=== PATIENT | male | born 1965 | race Two or more races ===

== ENCOUNTER 2016-06-18 20:36 | Inpatient (IN) | payer BC ==
[~2016-06-18] VITALS: Ht 170.2 cm; Wt 60.1 kg
[2016-06-18 22:23] LABS: BASO # 0.1 x10^3/uL (0.0-0.2); BASO % 1 % (0-3); EOS % 8 % (0-3); HEMATOCRIT 42.3 % (39.0-53.0); HEMOGLOBIN 13.7 g/dL (13.0-17.5); LYMPH # 1.1 x10^3/uL (1.0-4.8); LYMPH % 11 % (24-48); MEAN CORPUSCULAR HEMOGLOBIN 29 pg (25-35); MEAN CORPUSCULAR HGB CONC 32 g/dL (31-37); MEAN CORPUSCULAR VOLUME 91 fL (79-100); MONO % 8 % (0-9); NEUT % 72 % (31-73); PLATELET COUNT 221 x10^3/uL (140-400); RED BLOOD COUNT 4.66 x10^6/uL (4.30-5.70); RED CELL DISTRIBUTION WIDTH 16.9 % (11.5-14.5); WHITE BLOOD COUNT 10.4 x10^3/uL (4.0-11.0)
[2016-06-18 22:35] LABS: CREATININE 7.4 mg/dL (0.7-1.3); GFR 7.8; POTASSIUM 4.8 mmol/L (3.5-5.1)
--- NOTE | 2016-06-18 23:21 | PHYS DOC ---
Past Medical History Past Medical History: Renal Failure Past Surgical History: Other Additional Past Surgical Histo: bilat knee scope Alcohol Use: None Drug Use: None Adult General Chief Complaint Chief Complaint: COUGH HPI HPI 51-year-old male who states he's had significant cough for the last several weeks with some mild shortness of breath but denies any significant chest pain. Patient states his only past medical issues ESRD on hemodialysis 3 times a week. He states he receives hemodialysis Saturday and received a full treatment today on Saturday. His friend was concerned about his persisting cough so he brought him in for evaluation. He denies any significant history of cardiac disease. Review of Systems Review of Systems Constitutional: Denies fever or chills [] Eyes: Denies change in visual acuity, redness, or eye pain [] HENT: Denies nasal congestion or sore throat [] Respiratory: Has cough, denies shortness of breath [] Cardiovascular: No additional information not addressed in HPI [] GI: Denies abdominal pain, nausea, vomiting, bloody stools or diarrhea [] : Denies dysuria or hematuria [] Musculoskeletal: Denies back pain or joint pain [] Integument: Denies rash or skin lesions [] Neurologic: Denies headache, focal weakness or sensory changes [] Endocrine: Denies polyuria or polydipsia [] Allergies Allergies Allergies Coded Allergies Type Severity Reaction Last Updated Verified No Known Drug Allergies 06/18/16 No Physical Exam Physical Exam Constitutional: Well developed, well nourished, no acute distress, non-toxic appearance. [] HENT: Normocephalic, atraumatic, bilateral external ears normal, oropharynx moist, no oral exudates, nose normal. [] Eyes: PERRLA, EOMI, conjunctiva normal, no discharge. [] Neck: Normal range of motion, no tenderness, supple, no stridor. [] Cardiovascular:Heart rate tachycardic with regular rhythm, no murmur [] Lungs & Thorax: Bilateral breath sounds clear to auscultation [] Abdomen: Bowel sounds normal, soft, no tenderness, no masses, no pulsatile masses. [] Skin: Warm, dry, no erythema, no rash. [] Back: No tenderness, no CVA tenderness. [] Extremities: No tenderness, no cyanosis, no clubbing, ROM intact, no edema. [] Neurologic: Alert and oriented X 3, normal motor function, normal sensory function, no focal deficits noted. [] Psychologic: Affect normal, judgement normal, mood normal. [] Current Patient Data Vital Signs Vital Signs Date Time Temp Pulse Resp B/P Pulse Ox O2 Delivery O2 Flow Rate FiO2 06/18/16 23:03 110 11 123/69 92 Room Air 06/18/16 21:23 98.8 98.8 Lab Values Laboratory Tests Test 06/18/16 22:15 White Blood Count 10.4x10^3/uL (4.0-11.0) Red Blood Count 4.66x10^6/uL (4.30-5.70) Hemoglobin 13.7g/dL (13.0-17.5) Hematocrit 42.3% (39.0-53.0) Mean Corpuscular Volume 91fL (79-100) Mean Corpuscular Hemoglobin 29pg (25-35) Mean Corpuscular Hemoglobin Concent 32g/dL (31-37) Red Cell Distribution Width 16.9% (11.5-14.5) H Platelet Count 221x10^3/uL (140-400) Neutrophils (%) (Auto) 72% (31-73) Lymphocytes (%) (Auto) 11% (24-48) L Monocytes (%) (Auto) 8% (0-9) Eosinophils (%) (Auto) 8% (0-3) H Basophils (%) (Auto) 1% (0-3) Neutrophils # (Auto) 7.5x10^3uL (1.8-7.7) Lymphocytes # (Auto) 1.1x10^3/uL (1.0-4.8) Monocytes # (Auto) 0.8x10^3/uL (0.0-1.1) Eosinophils # (Auto) 0.9x10^3/uL (0.0-0.7) H Basophils # (Auto) 0.1x10^3/uL (0.0-0.2) Sodium Level 142mmol/L (136-145) Potassium Level 4.8mmol/L (3.5-5.1) Chloride Level 97mmol/L (98-107) L Carbon Dioxide Level 30mmol/L (21-32) Anion Gap 15 (6-14) H Blood Urea Nitrogen 39mg/dL (8-26) H Creatinine 7.4mg/dL (0.7-1.3) H Estimated GFR (Cockcroft-Gault) 7.8 Glucose Level 105mg/dL (70-99) H Calcium Level 10.0mg/dL (8.5-10.1) Troponin I Quantitative 0.111ng/mL (0.000-0.055) LN-Pwn-E-Type Natriuretic Peptide 9495pg/mL (0-124) H Laboratory Tests 06/18/16 22:15 Laboratory Tests 06/18/16 22:15 EKG EKG EKG as interpreted by me shows a sinus tachycardia with a rate of 103 bpm. There are findings consistent with a nonspecific intraventricular block. There is a right axis. There are no overt signs of ischemia seen. Radiology/Procedures Radiology/Procedures Portable 1 view of the chest as interpreted by me does not reveal an acute cardiopulmonary process. Course & Med Decision Making Course & Med Decision Making Pertinent Labs and Imaging studies reviewed. (See chart for details) 51-year-old male will be admitted to the hospital for his persisting cough. His troponin came back slightly elevated at 0.111 and I will order repeat troponins for the floor. I discussed need to admit the patient with the hospitalist, Dr. Craig, who agreed to accept the admission with cardiology consult as well. Patient was admitted without incident and given a dose of Phenergan cough syrup for his persisting cough. Dragon Disclaimer Dragon Disclaimer This electronic medical record was generated, in whole or in part, using a voice recognition dictation system. Departure Departure Impression: Primary Impression: Chest pain Disposition: ADMITTED INPATIENT Admitting Physician: Jessica Craig Condition: STABLE Referrals: NO PCP (PCP) SHEILA DC DO Jun 18, 2016 23:21
[2016-06-19] VITALS (8 sets, daily range): BP systolic 102–139; BP diastolic 55–73
[2016-06-19] MEDS ORDERED: PROMETH/CODEINE 6.25/10MG 5 ML SYRUP. PO ONE (00:15)
[2016-06-19 06:07] LABS: BASO # 0.1 x10^3/uL (0.0-0.2); BASO % 1 % (0-3); EOS % 12 % (0-3); HEMATOCRIT 38.7 % (39.0-53.0); HEMOGLOBIN 12.4 g/dL (13.0-17.5); LYMPH # 1.2 x10^3/uL (1.0-4.8); LYMPH % 15 % (24-48); MEAN CORPUSCULAR HEMOGLOBIN 29 pg (25-35); MEAN CORPUSCULAR HGB CONC 32 g/dL (31-37); MEAN CORPUSCULAR VOLUME 91 fL (79-100); MONO % 9 % (0-9); NEUT % 63 % (31-73); PLATELET COUNT 196 x10^3/uL (140-400); RED BLOOD COUNT 4.24 x10^6/uL (4.30-5.70); RED CELL DISTRIBUTION WIDTH 16.8 % (11.5-14.5); WHITE BLOOD COUNT 8.2 x10^3/uL (4.0-11.0)
[2016-06-19 06:21] LABS: CREATININE 8.4 mg/dL (0.7-1.3); GFR 6.7; POTASSIUM 4.8 mmol/L (3.5-5.1)
--- NOTE | 2016-06-19 07:26 | EKG ---
[facility] [address] [place] [address] Test Date: 2016-06-18 Test Time: 21:43:30 Pat Name: BING MOREAU Department: Room: 263 1 Gender: M Machine Turner: : 1965 Requested By: SHEILA DC Order Number: [id number] Reading MD: Lan Harvey Measurements Intervals Carr Rate: 103 P: -94 IA: 194 QRS: -103 QRSD: 142 T: 70 QT: 358 QTc: 471 Interpretive Statements SINUS TACHYCARDIA LEFT ATRIAL ABNORMALITY ABNORMAL RIGHT SUPERIOR AXIS DEVIATION LEFT ANTERIOR FASCICULAR BLOCK NON SPECIFIC INTRAVENTRICULAR BLOCK RVH WITH REPOLARIZATION ABNORMALITY QRS(T) CONTOUR ABNORMALITY CONSIDER INFERIOR MYOCARDIAL DAMAGE RI6.01 Unconfirmed report No previous ECG available for comparison Electronically Signed On 06-25-2016 10:46:46 BOX TOE CUTTER by Lan Harvey
--- NOTE | 2016-06-19 08:11 | RAD ---
Exam performed: One view chest. Indication: chest pain Date of Service: 06/18/2016 11:47 PM Comparison: None available. Single AP upright portable view chest findings: Cardiomediastinal silhouette is within limits of normal. No acute infiltrates, effusion or pneumothorax is detected. There is a stent projecting below the left clavicle. The bony structures are normal. Impression: No acute cardiopulmonary process is detected.
--- NOTE | 2016-06-19 10:32 | PDOC2 ---
KYARA SOMMER BUSINESS SYSTEMS ADVISOR 06/19/16 1032: CARDIAC CONSULT DATE OF CONSULT Date of Consult DATE: 06/19/16 TIME: 10:28 REASON FOR CONSULT Reason for Consult: Chest Pain REFERRING PHYSICIAN Referring Physician: Dr. Klein SOURCE Source: Chart review, Patient HISTORY OF PRESENT ILLNESS HISTORY OF PRESENT ILLNESS This is a 51 yo male who presented with complaints of persistent cough. Has been ongoing for the last couple of months. Associated with clear sputum production. Presently denies having CP. Did d/w RN that he had one episode of chest pain 2 weeks ago that was relieved by hitting himself in the chest. Reports to me this was "nothing". Denies any associated dizziness, diaphoresis, n/v, SOA, orthopnea, LE edema, or recent illness/fevers. Is ESRD on HD that he has been complaints with. PAST MEDICAL HISTORY Cardiovascular: HTN Pulmonary: No pertinent hx GI: No pertinent hx Heme/Onc: Anemia NOS Hepatobiliary: No pertinent hx Psych: No pertinent hx Rheumatologic: No pertinent hx Infectious disease: No pertinent hx ENT: No pertinent hx Renal/: Chronic renal failure (on HD) Endocrine: No pertinent hx Dermatology: No pertinent hx PAST SURGICAL HISTORY Past Surgical History: Other (HD shunt placement ) FAMILY HISTORY Family History: Other (non-contributory ) SOCIAL HISTORY Smoke: No ALCOHOL: none Drugs: None Lives: with Family CURRENT MEDICATIONS CURRENT MEDICATIONS Current Medications Medications (Trade) Dose Ordered Sig/Tyler Route PRN Reason Start Time Stop Time Status Last Admin Dose Admin Promethazine HCl/ Codeine (Phenergan With Codeine) 5 ml 1X ONCE PO 06/19/16 00:15 06/19/16 00:16 DC 06/19/16 00:23 ALLERGIES ALLERGIES: Coded Allergies: No Known Drug Allergies (Unverified , 06/18/16) ROS Review of System 14 point ROS conducted with pertinent positives noted above in HPI PHYSICAL EXAM General: Alert, Oriented X3, Cooperative, No acute distress HEENT: Mucous membr. moist/pink Lungs: Clear to auscultation, Normal air movement Heart: Regular rate, Normal S1, Normal S2 Abdomen: Soft, No tenderness Extremities: No edema, Normal pulses Skin: No significant lesion Neuro: Normal speech, Sensation intact Psych/Mental Status: Mental status NL, Mood NL MUSCULOSKELETAL: Full range of motion without pain VITALS VITALS Vital Signs Date Time Temp Pulse Resp B/P Pulse Ox O2 Delivery O2 Flow Rate FiO2 06/19/16 08:00 Room Air 06/19/16 07:52 97.9 99 19 131/73 93 97.9 LABS Lab: Laboratory Tests Test 06/18/16 22:15 06/19/16 05:25 White Blood Count 10.4x10^3/uL (4.0-11.0) 8.2x10^3/uL (4.0-11.0) Red Blood Count 4.66x10^6/uL (4.30-5.70) 4.24x10^6/uL (4.30-5.70) Hemoglobin 13.7g/dL (13.0-17.5) 12.4g/dL (13.0-17.5) Hematocrit 42.3% (39.0-53.0) 38.7% (39.0-53.0) Mean Corpuscular Volume 91fL (79-100) 91fL (79-100) Mean Corpuscular Hemoglobin 29pg (25-35) 29pg (25-35) Mean Corpuscular Hemoglobin Concent 32g/dL (31-37) 32g/dL (31-37) Red Cell Distribution Width 16.9% (11.5-14.5) 16.8% (11.5-14.5) Platelet Count 221x10^3/uL (140-400) 196x10^3/uL (140-400) Neutrophils (%) (Auto) 72% (31-73) 63% (31-73) Lymphocytes (%) (Auto) 11% (24-48) 15% (24-48) Monocytes (%) (Auto) 8% (0-9) 9% (0-9) Eosinophils (%) (Auto) 8% (0-3) 12% (0-3) Basophils (%) (Auto) 1% (0-3) 1% (0-3) Neutrophils # (Auto) 7.5x10^3uL (1.8-7.7) 5.2x10^3uL (1.8-7.7) Lymphocytes # (Auto) 1.1x10^3/uL (1.0-4.8) 1.2x10^3/uL (1.0-4.8) Monocytes # (Auto) 0.8x10^3/uL (0.0-1.1) 0.8x10^3/uL (0.0-1.1) Eosinophils # (Auto) 0.9x10^3/uL (0.0-0.7) 1.0x10^3/uL (0.0-0.7) Basophils # (Auto) 0.1x10^3/uL (0.0-0.2) 0.1x10^3/uL (0.0-0.2) Sodium Level 142mmol/L (136-145) 145mmol/L (136-145) Potassium Level 4.8mmol/L (3.5-5.1) 4.8mmol/L (3.5-5.1) Chloride Level 97mmol/L (98-107) 99mmol/L (98-107) Carbon Dioxide Level 30mmol/L (21-32) 29mmol/L (21-32) Anion Gap 15 (6-14) 17 (6-14) Blood Urea Nitrogen 39mg/dL (8-26) 42mg/dL (8-26) Creatinine 7.4mg/dL (0.7-1.3) 8.4mg/dL (0.7-1.3) Estimated GFR (Cockcroft-Gault) 7.8 6.7 Glucose Level 105mg/dL (70-99) 91mg/dL (70-99) Calcium Level 10.0mg/dL (8.5-10.1) 10.0mg/dL (8.5-10.1) Troponin I Quantitative 0.111ng/mL (0.000-0.055) 0.109ng/mL (0.000-0.055) NT-Bex-U-Type Natriuretic Peptide 9495pg/mL (0-124) ASSESSMENT/PLAN ASSESSMENT/PLAN 1. Chest Pain, atypical 2. Mild NT Pro BNP 3. ESRD on HD 4. URI Recommendations mild troponin elevation likely demand ischemia in the setting of chronic renal failure. doubt ACS. ASA. Check lipids. No s/s of overt HF. Will check echo to assess LV function/ rule out WMA If echo WNL, may discharge from cardiac standpoint. Problems: FRANNY DICK MD 06/19/16 2207: CARDIAC CONSULT ALLERGIES ALLERGIES: Coded Allergies: No Known Drug Allergies (Unverified , 06/18/16) ASSESSMENT/PLAN ASSESSMENT/PLAN Case discussed with TRAFFIC REPRESENTATIVE. 51 y.o male presenting with atypical chest pain Mild troponin elevation noted. Echo reviewed. Possible moderate to severe aortic stenosis. Will discuss with patient regarding further evaluation including BRENTON/heart cath as indicated. Further recs in a.m. Problems: KYARA SOMMER APRN Jun 19, 2016 10:32 FRANNY DICK MD Jun 19, 2016 22:07
--- NOTE | 2016-06-19 10:57 | PDOC2 ---
CONSULT Date of Consult Date of Consult DATE: 06/19/16 TIME: 10:54 Reason for Consult Reason for Consult: ESRD Referring Physician Referring Physician: LUIS Identification/Chief Complaint Chief Complaint CHEST PAIN Source Source: Chart review, Patient History of Present Illness Reason for Visit: THIS IS A 51 YR OLD ADMITTED WITH CHEST PAIN. HE HAS ESRD AND IS ON HD IN [place] ON MWF. LAST HAD HIS HD YESTERDAY. LABS ARE C/W ESRD. HE ALSO HAS A PERSISTENT COUGH Past Medical History Cardiovascular: HTN GI: Constipation Heme/Onc: Anemia NOS Renal/: Chronic renal failure (on HD) Endocrine: Hyperparathyroidism Past Surgical History Past Surgical History LEFT FA RC FISTULA Current Problem List Problem List Problems Medical Problems: (1) Chest pain Status: Acute Current Medications Current Medications Current Medications Promethazine HCl/ Codeine (Phenergan With Codeine) 5 ml 1X ONCE PO Last administered on 06/19/16t 00:23; Start 06/19/16 at 00:15; Stop 06/19/16 at 00:16 ; Status DC Active Scripts Active Reported No Known Medications Prior To Admisstion (Info) Each 1 Each Allergies Allergies: Coded Allergies: No Known Drug Allergies (Unverified , 06/18/16) ROS General: YES: Fatigue, Malaise PSYCHOLOGICAL ROS: YES: Anxiety Eyes: Yes Decreased vision HEENT: YES: Heacaches Respiratory: YES: Cough Cardiovascular: yes Chest Pain Gastrointestinal: Yes Constipation Musculoskeletal: Yes Muscular Weakness Neurological: Yes Weakness Physical Exam Physical Exam PATENT LEFT FA RC FISTULA WITH A GOOD THRILL AND BRUIT. WELL DEVELOPED General: Alert, Oriented X3, Cooperative, No acute distress HEENT: Atraumatic, PERRLA Lungs: Clear to auscultation Heart: Regular rate, Normal S1, Normal S2, No murmurs Abdomen: Normal bowel sounds, Soft, No tenderness Extremities: No clubbing, No edema Skin: No breakdown Neuro: Normal speech, Cranial nerves 3-12 NL Psych/Mental Status: Mental status NL, Mood NL MUSCULOSKELETAL: No deformity, No swelling Vitals VITALS Vital Signs Date Time Temp Pulse Resp B/P Pulse Ox O2 Delivery O2 Flow Rate FiO2 06/19/16 08:00 Room Air 06/19/16 07:52 97.9 99 19 131/73 93 97.9 Labs Labs Laboratory Tests Test 06/18/16 22:15 06/19/16 05:25 White Blood Count 10.4x10^3/uL (4.0-11.0) 8.2x10^3/uL (4.0-11.0) Red Blood Count 4.66x10^6/uL (4.30-5.70) 4.24x10^6/uL (4.30-5.70) Hemoglobin 13.7g/dL (13.0-17.5) 12.4g/dL (13.0-17.5) Hematocrit 42.3% (39.0-53.0) 38.7% (39.0-53.0) Mean Corpuscular Volume 91fL (79-100) 91fL (79-100) Mean Corpuscular Hemoglobin 29pg (25-35) 29pg (25-35) Mean Corpuscular Hemoglobin Concent 32g/dL (31-37) 32g/dL (31-37) Red Cell Distribution Width 16.9% (11.5-14.5) 16.8% (11.5-14.5) Platelet Count 221x10^3/uL (140-400) 196x10^3/uL (140-400) Neutrophils (%) (Auto) 72% (31-73) 63% (31-73) Lymphocytes (%) (Auto) 11% (24-48) 15% (24-48) Monocytes (%) (Auto) 8% (0-9) 9% (0-9) Eosinophils (%) (Auto) 8% (0-3) 12% (0-3) Basophils (%) (Auto) 1% (0-3) 1% (0-3) Neutrophils # (Auto) 7.5x10^3uL (1.8-7.7) 5.2x10^3uL (1.8-7.7) Lymphocytes # (Auto) 1.1x10^3/uL (1.0-4.8) 1.2x10^3/uL (1.0-4.8) Monocytes # (Auto) 0.8x10^3/uL (0.0-1.1) 0.8x10^3/uL (0.0-1.1) Eosinophils # (Auto) 0.9x10^3/uL (0.0-0.7) 1.0x10^3/uL (0.0-0.7) Basophils # (Auto) 0.1x10^3/uL (0.0-0.2) 0.1x10^3/uL (0.0-0.2) Sodium Level 142mmol/L (136-145) 145mmol/L (136-145) Potassium Level 4.8mmol/L (3.5-5.1) 4.8mmol/L (3.5-5.1) Chloride Level 97mmol/L (98-107) 99mmol/L (98-107) Carbon Dioxide Level 30mmol/L (21-32) 29mmol/L (21-32) Anion Gap 15 (6-14) 17 (6-14) Blood Urea Nitrogen 39mg/dL (8-26) 42mg/dL (8-26) Creatinine 7.4mg/dL (0.7-1.3) 8.4mg/dL (0.7-1.3) Estimated GFR (Cockcroft-Gault) 7.8 6.7 Glucose Level 105mg/dL (70-99) 91mg/dL (70-99) Calcium Level 10.0mg/dL (8.5-10.1) 10.0mg/dL (8.5-10.1) Troponin I Quantitative 0.111ng/mL (0.000-0.055) 0.109ng/mL (0.000-0.055) IQ-Yam-Y-Type Natriuretic Peptide 9495pg/mL (0-124) Laboratory Tests Test 06/18/16 22:15 06/19/16 05:25 White Blood Count 10.4x10^3/uL (4.0-11.0) 8.2x10^3/uL (4.0-11.0) Red Blood Count 4.66x10^6/uL (4.30-5.70) 4.24x10^6/uL (4.30-5.70) Hemoglobin 13.7g/dL (13.0-17.5) 12.4g/dL (13.0-17.5) Hematocrit 42.3% (39.0-53.0) 38.7% (39.0-53.0) Mean Corpuscular Volume 91fL (79-100) 91fL (79-100) Mean Corpuscular Hemoglobin 29pg (25-35) 29pg (25-35) Mean Corpuscular Hemoglobin Concent 32g/dL (31-37) 32g/dL (31-37) Red Cell Distribution Width 16.9% (11.5-14.5) 16.8% (11.5-14.5) Platelet Count 221x10^3/uL (140-400) 196x10^3/uL (140-400) Neutrophils (%) (Auto) 72% (31-73) 63% (31-73) Lymphocytes (%) (Auto) 11% (24-48) 15% (24-48) Monocytes (%) (Auto) 8% (0-9) 9% (0-9) Eosinophils (%) (Auto) 8% (0-3) 12% (0-3) Basophils (%) (Auto) 1% (0-3) 1% (0-3) Neutrophils # (Auto) 7.5x10^3uL (1.8-7.7) 5.2x10^3uL (1.8-7.7) Lymphocytes # (Auto) 1.1x10^3/uL (1.0-4.8) 1.2x10^3/uL (1.0-4.8) Monocytes # (Auto) 0.8x10^3/uL (0.0-1.1) 0.8x10^3/uL (0.0-1.1) Eosinophils # (Auto) 0.9x10^3/uL (0.0-0.7) 1.0x10^3/uL (0.0-0.7) Basophils # (Auto) 0.1x10^3/uL (0.0-0.2) 0.1x10^3/uL (0.0-0.2) Sodium Level 142mmol/L (136-145) 145mmol/L (136-145) Potassium Level 4.8mmol/L (3.5-5.1) 4.8mmol/L (3.5-5.1) Chloride Level 97mmol/L (98-107) 99mmol/L (98-107) Carbon Dioxide Level 30mmol/L (21-32) 29mmol/L (21-32) Anion Gap 15 (6-14) 17 (6-14) Blood Urea Nitrogen 39mg/dL (8-26) 42mg/dL (8-26) Creatinine 7.4mg/dL (0.7-1.3) 8.4mg/dL (0.7-1.3) Estimated GFR (Cockcroft-Gault) 7.8 6.7 Glucose Level 105mg/dL (70-99) 91mg/dL (70-99) Calcium Level 10.0mg/dL (8.5-10.1) 10.0mg/dL (8.5-10.1) Troponin I Quantitative 0.111ng/mL (0.000-0.055) 0.109ng/mL (0.000-0.055) SF-Mer-E-Type Natriuretic Peptide 9495pg/mL (0-124) Assessment/Plan Assessment/Plan IMP CHEST PAIN COUGH ANEMIA HTN ESRD PLAN CARDIOLOGY EVAL AND TX HD TOMORROW WILL FOLLOW KAILYN CHRISTIANSEN MD Jun 19, 2016 10:57
[2016-06-19 12:41] LABS: CHOLESTEROL/HDL RATIO 3.9
--- NOTE | 2016-06-19 15:27 | PDOC1 ---
History and Physical Date of Admission Date of Admission 06/19/16 Identification/Chief Complaint Chief Complaint cough Problems: Source Source: Chart review, Patient History of Present Illness History of Present Illness HPI HPI 51-year-old male ESRD on HD wmf, NO PCP, comes for cough for 2 months He said he didnot take any meds for it. Romanian speaking. he does have some clear sputum. denies chest pain. didnot miss HD. Past Medical History Cardiovascular: HTN Pulmonary: No pertinent hx GI: No pertinent hx Heme/Onc: Anemia NOS Hepatobiliary: No pertinent hx Psych: No pertinent hx Rheumatologic: No pertinent hx Infectious disease: No pertinent hx ENT: No pertinent hx Renal/: Chronic renal failure (on HD) Endocrine: No pertinent hx Dermatology: No pertinent hx Past Surgical History Past Surgical History: Other (HD shunt placement ) Family History Family History: Other (non-contributory ) Social History Smoke: No ALCOHOL: none Drugs: None Current Problem List Problem List Problems Medical Problems: (1) Chest pain Status: Acute Current Medications Current Medications Current Medications Medications (Trade) Dose Ordered Sig/Tyler Start Time Stop Time Status Last Admin Dose Admin Promethazine HCl/ Codeine (Phenergan With Codeine) 5 ml 1X ONCE 06/19/16 00:15 06/19/16 00:16 DC 06/19/16 00:23 5 ML Allergies Allergies Allergies Coded Allergies Type Severity Reaction Last Updated Verified No Known Drug Allergies 06/18/16 No ROS Review of System CONSTITUTIONAL: No fever or chills EYES: No recent changes SKIN: No rash or itching CARDIOVASCULAR: No chest pain, syncope, palpitations, or edema RESPIRATORY: No SOB or cough GASTROINTESTINAL: No nausea, vomiting or abdominal pain NEUROLOGICAL: No headaches or weakness ENDOCRINE: No cold or heat intolerance GENITOURINARY: No urgency or frequency of urination MUSCULOSKELETAL: No back pain or joint pain LYMPHATICS: No enlarged lymph nodes PSYCHIATRIC: No anxiety or depression Physical Exam Physical Exam GEN.: No apparent distress. Alert and oriented. HEENT: Head is normocephalic, atraumatic NECK: Supple. LUNGS: Clear to auscultation. HEART: RRR, S1, S2 present. Peripheral pulses intact ABDOMEN: Soft, nontender. Positive bowel sounds. EXTREMITIES: Without any cyanosis. NEUROLOGIC: Normal speech, normal tone PSYCHIATRIC: Normal affect, normal mood. SKIN: No ulcerations Vitals Vitals Vital Signs Date Time Temp Pulse Resp B/P Pulse Ox O2 Delivery O2 Flow Rate FiO2 06/19/16 14:26 98.0 97 19 106/55 93 Room Air 98.0 Labs Labs Laboratory Tests Test 06/18/16 22:15 06/19/16 05:25 06/19/16 11:05 White Blood Count 10.4x10^3/uL (4.0-11.0) 8.2x10^3/uL (4.0-11.0) Red Blood Count 4.66x10^6/uL (4.30-5.70) 4.24x10^6/uL (4.30-5.70) Hemoglobin 13.7g/dL (13.0-17.5) 12.4g/dL (13.0-17.5) Hematocrit 42.3% (39.0-53.0) 38.7% (39.0-53.0) Mean Corpuscular Volume 91fL (79-100) 91fL (79-100) Mean Corpuscular Hemoglobin 29pg (25-35) 29pg (25-35) Mean Corpuscular Hemoglobin Concent 32g/dL (31-37) 32g/dL (31-37) Red Cell Distribution Width 16.9% (11.5-14.5) 16.8% (11.5-14.5) Platelet Count 221x10^3/uL (140-400) 196x10^3/uL (140-400) Neutrophils (%) (Auto) 72% (31-73) 63% (31-73) Lymphocytes (%) (Auto) 11% (24-48) 15% (24-48) Monocytes (%) (Auto) 8% (0-9) 9% (0-9) Eosinophils (%) (Auto) 8% (0-3) 12% (0-3) Basophils (%) (Auto) 1% (0-3) 1% (0-3) Neutrophils # (Auto) 7.5x10^3uL (1.8-7.7) 5.2x10^3uL (1.8-7.7) Lymphocytes # (Auto) 1.1x10^3/uL (1.0-4.8) 1.2x10^3/uL (1.0-4.8) Monocytes # (Auto) 0.8x10^3/uL (0.0-1.1) 0.8x10^3/uL (0.0-1.1) Eosinophils # (Auto) 0.9x10^3/uL (0.0-0.7) 1.0x10^3/uL (0.0-0.7) Basophils # (Auto) 0.1x10^3/uL (0.0-0.2) 0.1x10^3/uL (0.0-0.2) Sodium Level 142mmol/L (136-145) 145mmol/L (136-145) Potassium Level 4.8mmol/L (3.5-5.1) 4.8mmol/L (3.5-5.1) Chloride Level 97mmol/L (98-107) 99mmol/L (98-107) Carbon Dioxide Level 30mmol/L (21-32) 29mmol/L (21-32) Anion Gap 15 (6-14) 17 (6-14) Blood Urea Nitrogen 39mg/dL (8-26) 42mg/dL (8-26) Creatinine 7.4mg/dL (0.7-1.3) 8.4mg/dL (0.7-1.3) Estimated GFR (Cockcroft-Gault) 7.8 6.7 Glucose Level 105mg/dL (70-99) 91mg/dL (70-99) Calcium Level 10.0mg/dL (8.5-10.1) 10.0mg/dL (8.5-10.1) Troponin I Quantitative 0.111ng/mL (0.000-0.055) 0.109ng/mL (0.000-0.055) 0.094ng/mL (0.000-0.055) LE-Ssk-Y-Type Natriuretic Peptide 9495pg/mL (0-124) Triglycerides Level 112mg/dL (0-150) Cholesterol Level 172mg/dL (0-200) LDL Cholesterol, Calculated 106mg/dL (0-100) VLDL Cholesterol, Calculated 22mg/dL (0-40) HDL Cholesterol 44mg/dL (40-60) Cholesterol/HDL Ratio 3.9 Laboratory Tests Test 06/18/16 22:15 06/19/16 05:25 06/19/16 11:05 White Blood Count 10.4x10^3/uL (4.0-11.0) 8.2x10^3/uL (4.0-11.0) Red Blood Count 4.66x10^6/uL (4.30-5.70) 4.24x10^6/uL (4.30-5.70) Hemoglobin 13.7g/dL (13.0-17.5) 12.4g/dL (13.0-17.5) Hematocrit 42.3% (39.0-53.0) 38.7% (39.0-53.0) Mean Corpuscular Volume 91fL (79-100) 91fL (79-100) Mean Corpuscular Hemoglobin 29pg (25-35) 29pg (25-35) Mean Corpuscular Hemoglobin Concent 32g/dL (31-37) 32g/dL (31-37) Red Cell Distribution Width 16.9% (11.5-14.5) 16.8% (11.5-14.5) Platelet Count 221x10^3/uL (140-400) 196x10^3/uL (140-400) Neutrophils (%) (Auto) 72% (31-73) 63% (31-73) Lymphocytes (%) (Auto) 11% (24-48) 15% (24-48) Monocytes (%) (Auto) 8% (0-9) 9% (0-9) Eosinophils (%) (Auto) 8% (0-3) 12% (0-3) Basophils (%) (Auto) 1% (0-3) 1% (0-3) Neutrophils # (Auto) 7.5x10^3uL (1.8-7.7) 5.2x10^3uL (1.8-7.7) Lymphocytes # (Auto) 1.1x10^3/uL (1.0-4.8) 1.2x10^3/uL (1.0-4.8) Monocytes # (Auto) 0.8x10^3/uL (0.0-1.1) 0.8x10^3/uL (0.0-1.1) Eosinophils # (Auto) 0.9x10^3/uL (0.0-0.7) 1.0x10^3/uL (0.0-0.7) Basophils # (Auto) 0.1x10^3/uL (0.0-0.2) 0.1x10^3/uL (0.0-0.2) Sodium Level 142mmol/L (136-145) 145mmol/L (136-145) Potassium Level 4.8mmol/L (3.5-5.1) 4.8mmol/L (3.5-5.1) Chloride Level 97mmol/L (98-107) 99mmol/L (98-107) Carbon Dioxide Level 30mmol/L (21-32) 29mmol/L (21-32) Anion Gap 15 (6-14) 17 (6-14) Blood Urea Nitrogen 39mg/dL (8-26) 42mg/dL (8-26) Creatinine 7.4mg/dL (0.7-1.3) 8.4mg/dL (0.7-1.3) Estimated GFR (Cockcroft-Gault) 7.8 6.7 Glucose Level 105mg/dL (70-99) 91mg/dL (70-99) Calcium Level 10.0mg/dL (8.5-10.1) 10.0mg/dL (8.5-10.1) Troponin I Quantitative 0.111ng/mL (0.000-0.055) 0.109ng/mL (0.000-0.055) 0.094ng/mL (0.000-0.055) EC-Xhz-R-Type Natriuretic Peptide 9495pg/mL (0-124) Triglycerides Level 112mg/dL (0-150) Cholesterol Level 172mg/dL (0-200) LDL Cholesterol, Calculated 106mg/dL (0-100) VLDL Cholesterol, Calculated 22mg/dL (0-40) HDL Cholesterol 44mg/dL (40-60) Cholesterol/HDL Ratio 3.9 VTE Prophylaxis Ordered VTE Prophylaxis Devices: Yes VTE Pharmacological Prophylaxi: Yes Assessment/Plan Assessment/Plan 1. bronchitis, likely viral infection 2. ESRD ON HD MWF 3. high troponin 2/2 2 likely plan: fu with renal , Card echo add azithromycin given coughing for 2 months, add mucinex duoneb hope to dc tmr BEKAH SALAZAR MD Jun 19, 2016 15:27
[2016-06-19] MEDS ORDERED: ACETAMINOPHEN 325 MG TABLET. PO PRN (15:30)
[2016-06-19] MEDS ORDERED: ONDANSETRON PF 4 MG/2 ML VIAL. IV PRN (15:30)
[2016-06-19] MEDS ORDERED: AZITHROMYCIN 250 MG TABLET PO ONE (15:45)
[2016-06-19] MEDS: GUAIFENESIN ER 600 MG TABLET.ER PO SCH (16:06)
--- NOTE | 2016-06-19 16:17 | CARD ---
APPROVED REPORT EXAM: Two-dimensional and M-mode echocardiogram with Doppler and color Doppler. Other Information Quality : Average Rhythm : NSR INDICATION elevated troponin level 2D DIMENSIONS Left Atrium(2D)3.8 (1.6-4.0cm)IVSd1.9 (0.7-1.1cm) Aortic Root(2D)3.3 (2.0-3.7cm)LVDd5.1 (3.9-5.9cm) LVOT Diameter1.9 (1.8-2.4cm)PWd1.8 (0.7-1.1cm) LVDs3.6 (2.5-4.0cm)SV72.1 ml LVEF(%)54.3 (>50%) Aortic Valve AoV Peak Hakeem.325.9cm/sAoV VTI60.4cm AO Peak GR.42.5mmHgLVOT Peak Hakeem.111.8cm/s AO Mean GR.28mmHgAVA (VMAX)0.96cm2 ERIC (VTI)0.73to5GY P 1/2 Kcng534qr Mitral Valve MV E Wppubwnb41.9cm/sMV DECEL APLD199mk MV A Xdbntffz840.2cm/sMV UIE26et E/A Ratio0.5MV A Jaybggux998yb MVA (PHT)4.67cm2 Tricuspid Valve TR P. Wonutbrh660my/sRAP LQCTPEDM6znEg TR Peak Gr.70bdWvPYPG94ulRn LEFT VENTRICLE The left ventricle is normal size. There is moderate concentric left ventricular hypertrophy. Left ve ntricle systolic function is normal. The Ejection Fraction is 50-55%. There is normal LV segmental wa ll motion. Tissue Doppler imaging reveals mild left ventricular diastolic dysfunction. Transmitral Do ppler flow pattern is Grade I-abnormal relaxation pattern. RIGHT VENTRICLE The right ventricle is normal size. The right ventricular systolic function is normal. ATRIA The left atrium size is normal. The right atrium size is normal. The interatrial septum is intact wit h no evidence for an atrial septal defect or patent foramen ovale as noted on 2-D or Doppler imaging. AORTIC VALVE The aortic valve is moderately to severely calcified. Doppler and Color Flow revealed mild aortic reg urgitation. Calculated aortic valve area maximum pressure gradient of 43 mmHg and mean pressure gradi ent of 28 mmHg. Doppler and color-flow analysis revealed moderate to moderately severe aortic stenosi s. MITRAL VALVE Mitral annular calcification is moderate on the anterior leaflet. There is no mitral valve stenosis. Doppler and Color Flow revealed mild mitral regurgitation. TRICUSPID VALVE The tricuspid valve is normal in structure and function. Doppler and Color Flow revealed trace to mil d tricuspid regurgitation. The PA pressure was estimated at 18 mmHg. There is no tricuspid valve sten osis. PULMONIC VALVE The pulmonic valve is not well visualized. Doppler and Color Flow revealed no pulmonic valvular regur gitation. There is no pulmonic valvular stenosis. GREAT VESSELS The aortic root is normal in size. The IVC is normal in size and collapses >50% with inspiration. PERICARDIAL EFFUSION There is no evidence of significant pericardial effusion. Critical Notification Date: 06/19/2016 Time: 15:51 Other Discipline : Mary Ellen Greene APRN Critical Value: Yes <Conclusion> The left ventricle is normal size. Left ventricle systolic function is normal. The Ejection Fraction is 50-55%. There is moderate concentric left ventricular hypertrophy. The aortic valve is moderately to severely calcified. Calculated aortic valve area maximum pressure gradient of 43 mmHg and mean pressure gradient of 28 m mHg. Doppler and color-flow analysis revealed moderate to moderately severe aortic stenosis. Doppler and Color Flow revealed mild aortic regurgitation. Doppler and Color Flow revealed mild mitral regurgitation. Doppler and Color Flow revealed trace to mild tricuspid regurgitation. The PA pressure was estimated at 18 mmHg.
[2016-06-19] MEDS: IPRATRPIUM/ALBUTEROL 0.5/2.5MG 3 ML NEBU. NEB SCH (18:59)
[2016-06-19] MEDS: GUAIFENESIN DM 200MG/20MG 10 ML SYRUP. PO PRN (21:48)
[2016-06-20 02:55] VITALS: BP 127/70
[2016-06-20 04:30] LABS: CALCIUM 9.6 mg/dL (8.5-10.1); CREATININE 11.1 mg/dL (0.7-1.3); GFR 4.9; POTASSIUM 5.1 mmol/L (3.5-5.1)
[2016-06-20 04:38] LABS: BASO # 0.1 x10^3/uL (0.0-0.2); BASO % 1 % (0-3); EOS % 6 % (0-3); HEMATOCRIT 35.7 % (39.0-53.0); HEMOGLOBIN 11.6 g/dL (13.0-17.5); LYMPH % 9 % (24-48); MEAN CORPUSCULAR HEMOGLOBIN 30 pg (25-35); MEAN CORPUSCULAR HGB CONC 33 g/dL (31-37); MEAN CORPUSCULAR VOLUME 91 fL (79-100); MONO % 9 % (0-9); NEUT % 75 % (31-73); PLATELET COUNT 198 x10^3/uL (140-400); RED CELL DISTRIBUTION WIDTH 16.7 % (11.5-14.5); WHITE BLOOD COUNT 12.1 x10^3/uL (4.0-11.0)
[2016-06-20 07:00] VITALS: BP 136/75
[2016-06-20] MEDS: IPRATRPIUM/ALBUTEROL 0.5/2.5MG 3 ML NEBU. NEB SCH ×4 (07:57→20:02)
[2016-06-20] MEDS: GUAIFENESIN DM 200MG/20MG 10 ML SYRUP. PO PRN (08:15)
[2016-06-20] MEDS ORDERED: IV NORMAL SALINE 1000ML BAG 1,000 ML IV PRN ×2 (08:38)
[2016-06-20] MEDS ORDERED: DIALYSIS PATIENT. MC PRN (08:45)
[2016-06-20] MEDS ORDERED: DIPHENHYDRAMINE 50 MG/ML VIAL IV PRN ×2 (08:45)
--- NOTE | 2016-06-20 09:35 | PDOC ---
CARDIO Progress Notes Date and Time Date of Service 06/20/16 Time of Evaluation 0915 Subjective Subjective: No Chest Pain, No shortness of breath, No Palpitations, No Dizziness, Other (cough persists ) Comments: trimmer climber line utilized for encounter Vitals Vitals Vital Signs Date Time Temp Pulse Resp B/P Pulse Ox O2 Delivery O2 Flow Rate FiO2 06/20/16 08:19 Room Air 06/20/16 07:58 93 06/20/16 07:00 98.1 92 17 136/75 98.1 Weight Weight [ ] Input and Output Intake and Output Intake and Output 06/20/16 07:00 Intake Total 1640 ml Output Total 600 ml Balance 1040 ml Intake Oral 1640 ml Output Urine Total 600 ml Laboratory Labs Laboratory Tests Test 06/19/16 11:05 06/20/16 03:48 Troponin I Quantitative 0.094ng/mL (0.000-0.055) White Blood Count 12.1x10^3/uL (4.0-11.0) Red Blood Count 3.90x10^6/uL (4.30-5.70) Hemoglobin 11.6g/dL (13.0-17.5) Hematocrit 35.7% (39.0-53.0) Mean Corpuscular Volume 91fL (79-100) Mean Corpuscular Hemoglobin 30pg (25-35) Mean Corpuscular Hemoglobin Concent 33g/dL (31-37) Red Cell Distribution Width 16.7% (11.5-14.5) Platelet Count 198x10^3/uL (140-400) Neutrophils (%) (Auto) 75% (31-73) Lymphocytes (%) (Auto) 9% (24-48) Monocytes (%) (Auto) 9% (0-9) Eosinophils (%) (Auto) 6% (0-3) Basophils (%) (Auto) 1% (0-3) Neutrophils # (Auto) 9.1x10^3uL (1.8-7.7) Lymphocytes # (Auto) 1.0x10^3/uL (1.0-4.8) Monocytes # (Auto) 1.1x10^3/uL (0.0-1.1) Eosinophils # (Auto) 0.8x10^3/uL (0.0-0.7) Basophils # (Auto) 0.1x10^3/uL (0.0-0.2) Sodium Level 141mmol/L (136-145) Potassium Level 5.1mmol/L (3.5-5.1) Chloride Level 98mmol/L (98-107) Carbon Dioxide Level 27mmol/L (21-32) Anion Gap 16 (6-14) Blood Urea Nitrogen 77mg/dL (8-26) Creatinine 11.1mg/dL (0.7-1.3) Estimated GFR (Cockcroft-Gault) 4.9 Glucose Level 110mg/dL (70-99) Calcium Level 9.6mg/dL (8.5-10.1) Physical Exam HEENT: Neck Supple W Full Motion Chest: Symmetric Heart: S1S2, RRR, other (2/6 systolic murmur ) Abdomen: Soft N/T Extremities: No Edema, Other (LUE fistula + bruit and thrill) Neurology: alert, oriented, follow commands Assessment Assessment 1. Chest Pain, atypical 2. Mild NT Pro BNP 3. Moderate-severe aortic stenosis 4. ESRD on HD 5. cough Recommendations Had significant, thorough discussion with patient regarding echo finding of moderate-severe aortic stenosis along with probable complications and potential role it may have in his ongoing cough. Further cardiac evaluation, in the form of BRENTON/cardiac cath discussed with patient for which he declined to proceed with multiple times. Acknowledges he will eventually have further implications from untreated heart/valvular disease. Reports that he will consider further cardiac workup at a later date but he has things he needs to attend to at home; repeatedly asking when he can go home during discussion. Patient provided with office card and contact information. Encouraged to follow up within 2-4 weeks. Patient verbalized understanding. KYARA SOMMER APRN Jun 20, 2016 09:34
--- NOTE | 2016-06-20 10:44 | PDOC ---
Renal-Progress Notes Subjective Notes Notes FEELS WELL, WANTS TO GO HOME History of Present Illness Hx of present illness NO CHANGE Vitals Vitals Vital Signs Date Time Temp Pulse Resp B/P Pulse Ox O2 Delivery O2 Flow Rate FiO2 06/20/16 08:19 Room Air 06/20/16 07:58 93 06/20/16 07:00 98.1 92 17 136/75 98.1 Weight Weight [ ] I.O. Intake and Output Intake and Output 06/20/16 07:00 Intake Total 1640 ml Output Total 600 ml Balance 1040 ml Intake Oral 1640 ml Output Urine Total 600 ml Labs Labs Laboratory Tests Test 06/19/16 11:05 06/20/16 03:48 Troponin I Quantitative 0.094ng/mL (0.000-0.055) White Blood Count 12.1x10^3/uL (4.0-11.0) Red Blood Count 3.90x10^6/uL (4.30-5.70) Hemoglobin 11.6g/dL (13.0-17.5) Hematocrit 35.7% (39.0-53.0) Mean Corpuscular Volume 91fL (79-100) Mean Corpuscular Hemoglobin 30pg (25-35) Mean Corpuscular Hemoglobin Concent 33g/dL (31-37) Red Cell Distribution Width 16.7% (11.5-14.5) Platelet Count 198x10^3/uL (140-400) Neutrophils (%) (Auto) 75% (31-73) Lymphocytes (%) (Auto) 9% (24-48) Monocytes (%) (Auto) 9% (0-9) Eosinophils (%) (Auto) 6% (0-3) Basophils (%) (Auto) 1% (0-3) Neutrophils # (Auto) 9.1x10^3uL (1.8-7.7) Lymphocytes # (Auto) 1.0x10^3/uL (1.0-4.8) Monocytes # (Auto) 1.1x10^3/uL (0.0-1.1) Eosinophils # (Auto) 0.8x10^3/uL (0.0-0.7) Basophils # (Auto) 0.1x10^3/uL (0.0-0.2) Sodium Level 141mmol/L (136-145) Potassium Level 5.1mmol/L (3.5-5.1) Chloride Level 98mmol/L (98-107) Carbon Dioxide Level 27mmol/L (21-32) Anion Gap 16 (6-14) Blood Urea Nitrogen 77mg/dL (8-26) Creatinine 11.1mg/dL (0.7-1.3) Estimated GFR (Cockcroft-Gault) 4.9 Glucose Level 110mg/dL (70-99) Calcium Level 9.6mg/dL (8.5-10.1) Physical Exam General Appearance: no apparent distress Respiratory: bilateral CTA Heart: S1S2, RRR Abdomen: soft, bowel sounds present Neurology: alert, oriented, follow commands Assessment Assessment IMP ESRD ANEMIA CHEST PAIN PLAN HD TODAY UF TO KAILYN COTTER MD Jun 20, 2016 10:44
--- NOTE | 2016-06-20 13:12 | PDOC ---
PROGRESS NOTES Chief Complaint Chief Complaint Chest pain History of Present Illness History of Present Illness Patient was seen in dialysis unit. No acute events overnight. After results of echocardiogram, cardiology discussed further workup with BRENTON and possible cardiac cath, patient adamantly refused further workup as inpatient. Vitals Vitals Vital Signs Date Time Temp Pulse Resp B/P Pulse Ox O2 Delivery O2 Flow Rate FiO2 06/20/16 08:19 Room Air 06/20/16 07:58 93 06/20/16 07:00 98.1 92 17 136/75 98.1 Physical Exam General: Alert, Oriented X3, Cooperative, No acute distress Heart: Regular rate, Normal S1, Normal S2 Abdomen: Soft, No tenderness Extremities: No edema, Normal pulses, Other (aneurysm of left wrist) Skin: No significant lesion Labs LABS Laboratory Tests Test 06/20/16 03:48 White Blood Count 12.1x10^3/uL (4.0-11.0) Red Blood Count 3.90x10^6/uL (4.30-5.70) Hemoglobin 11.6g/dL (13.0-17.5) Hematocrit 35.7% (39.0-53.0) Mean Corpuscular Volume 91fL (79-100) Mean Corpuscular Hemoglobin 30pg (25-35) Mean Corpuscular Hemoglobin Concent 33g/dL (31-37) Red Cell Distribution Width 16.7% (11.5-14.5) Platelet Count 198x10^3/uL (140-400) Neutrophils (%) (Auto) 75% (31-73) Lymphocytes (%) (Auto) 9% (24-48) Monocytes (%) (Auto) 9% (0-9) Eosinophils (%) (Auto) 6% (0-3) Basophils (%) (Auto) 1% (0-3) Neutrophils # (Auto) 9.1x10^3uL (1.8-7.7) Lymphocytes # (Auto) 1.0x10^3/uL (1.0-4.8) Monocytes # (Auto) 1.1x10^3/uL (0.0-1.1) Eosinophils # (Auto) 0.8x10^3/uL (0.0-0.7) Basophils # (Auto) 0.1x10^3/uL (0.0-0.2) Sodium Level 141mmol/L (136-145) Potassium Level 5.1mmol/L (3.5-5.1) Chloride Level 98mmol/L (98-107) Carbon Dioxide Level 27mmol/L (21-32) Anion Gap 16 (6-14) Blood Urea Nitrogen 77mg/dL (8-26) Creatinine 11.1mg/dL (0.7-1.3) Estimated GFR (Cockcroft-Gault) 4.9 Glucose Level 110mg/dL (70-99) Calcium Level 9.6mg/dL (8.5-10.1) Review of Systems Review of Systems Denies current chest pain. Denies nausea and vomiting. Assessment and Plan Assessmemt and Plan Problems Medical Problems: (1) Chest pain Status: Acute Assessment: Chest pain, resolved, severe aortic calcification on ECHO Chronic renal failure, on hemodialysis HTN Anemia, chronic Plan: Continue hemodialysis per renal Follow with cardiology as outpatient for recommended workup of aortic calcification, patient refusing inpatient BRENTON and possible cardiac cath Recheck labs Continue azithromycin Appreciate subspecialty input Possible discharge home in AM Problems: Comment Review of Relevant I have reviewed the following items melisa (where applicable) has been applied. Labs Laboratory Tests Test 06/18/16 22:15 06/19/16 05:25 06/19/16 11:05 06/20/16 03:48 White Blood Count 10.4x10^3/uL (4.0-11.0) 8.2x10^3/uL (4.0-11.0) 12.1x10^3/uL (4.0-11.0) Red Blood Count 4.66x10^6/uL (4.30-5.70) 4.24x10^6/uL (4.30-5.70) 3.90x10^6/uL (4.30-5.70) Hemoglobin 13.7g/dL (13.0-17.5) 12.4g/dL (13.0-17.5) 11.6g/dL (13.0-17.5) Hematocrit 42.3% (39.0-53.0) 38.7% (39.0-53.0) 35.7% (39.0-53.0) Mean Corpuscular Volume 91fL (79-100) 91fL (79-100) 91fL (79-100) Mean Corpuscular Hemoglobin 29pg (25-35) 29pg (25-35) 30pg (25-35) Mean Corpuscular Hemoglobin Concent 32g/dL (31-37) 32g/dL (31-37) 33g/dL (31-37) Red Cell Distribution Width 16.9% (11.5-14.5) 16.8% (11.5-14.5) 16.7% (11.5-14.5) Platelet Count 221x10^3/uL (140-400) 196x10^3/uL (140-400) 198x10^3/uL (140-400) Neutrophils (%) (Auto) 72% (31-73) 63% (31-73) 75% (31-73) Lymphocytes (%) (Auto) 11% (24-48) 15% (24-48) 9% (24-48) Monocytes (%) (Auto) 8% (0-9) 9% (0-9) 9% (0-9) Eosinophils (%) (Auto) 8% (0-3) 12% (0-3) 6% (0-3) Basophils (%) (Auto) 1% (0-3) 1% (0-3) 1% (0-3) Neutrophils # (Auto) 7.5x10^3uL (1.8-7.7) 5.2x10^3uL (1.8-7.7) 9.1x10^3uL (1.8-7.7) Lymphocytes # (Auto) 1.1x10^3/uL (1.0-4.8) 1.2x10^3/uL (1.0-4.8) 1.0x10^3/uL (1.0-4.8) Monocytes # (Auto) 0.8x10^3/uL (0.0-1.1) 0.8x10^3/uL (0.0-1.1) 1.1x10^3/uL (0.0-1.1) Eosinophils # (Auto) 0.9x10^3/uL (0.0-0.7) 1.0x10^3/uL (0.0-0.7) 0.8x10^3/uL (0.0-0.7) Basophils # (Auto) 0.1x10^3/uL (0.0-0.2) 0.1x10^3/uL (0.0-0.2) 0.1x10^3/uL (0.0-0.2) Sodium Level 142mmol/L (136-145) 145mmol/L (136-145) 141mmol/L (136-145) Potassium Level 4.8mmol/L (3.5-5.1) 4.8mmol/L (3.5-5.1) 5.1mmol/L (3.5-5.1) Chloride Level 97mmol/L (98-107) 99mmol/L (98-107) 98mmol/L (98-107) Carbon Dioxide Level 30mmol/L (21-32) 29mmol/L (21-32) 27mmol/L (21-32) Anion Gap 15 (6-14) 17 (6-14) 16 (6-14) Blood Urea Nitrogen 39mg/dL (8-26) 42mg/dL (8-26) 77mg/dL (8-26) Creatinine 7.4mg/dL (0.7-1.3) 8.4mg/dL (0.7-1.3) 11.1mg/dL (0.7-1.3) Estimated GFR (Cockcroft-Gault) 7.8 6.7 4.9 Glucose Level 105mg/dL (70-99) 91mg/dL (70-99) 110mg/dL (70-99) Calcium Level 10.0mg/dL (8.5-10.1) 10.0mg/dL (8.5-10.1) 9.6mg/dL (8.5-10.1) Troponin I Quantitative 0.111ng/mL (0.000-0.055) 0.109ng/mL (0.000-0.055) 0.094ng/mL (0.000-0.055) BT-Kad-M-Type Natriuretic Peptide 9495pg/mL (0-124) Triglycerides Level 112mg/dL (0-150) Cholesterol Level 172mg/dL (0-200) LDL Cholesterol, Calculated 106mg/dL (0-100) VLDL Cholesterol, Calculated 22mg/dL (0-40) HDL Cholesterol 44mg/dL (40-60) Cholesterol/HDL Ratio 3.9 Laboratory Tests Test 06/20/16 03:48 White Blood Count 12.1x10^3/uL (4.0-11.0) Red Blood Count 3.90x10^6/uL (4.30-5.70) Hemoglobin 11.6g/dL (13.0-17.5) Hematocrit 35.7% (39.0-53.0) Mean Corpuscular Volume 91fL (79-100) Mean Corpuscular Hemoglobin 30pg (25-35) Mean Corpuscular Hemoglobin Concent 33g/dL (31-37) Red Cell Distribution Width 16.7% (11.5-14.5) Platelet Count 198x10^3/uL (140-400) Neutrophils (%) (Auto) 75% (31-73) Lymphocytes (%) (Auto) 9% (24-48) Monocytes (%) (Auto) 9% (0-9) Eosinophils (%) (Auto) 6% (0-3) Basophils (%) (Auto) 1% (0-3) Neutrophils # (Auto) 9.1x10^3uL (1.8-7.7) Lymphocytes # (Auto) 1.0x10^3/uL (1.0-4.8) Monocytes # (Auto) 1.1x10^3/uL (0.0-1.1) Eosinophils # (Auto) 0.8x10^3/uL (0.0-0.7) Basophils # (Auto) 0.1x10^3/uL (0.0-0.2) Sodium Level 141mmol/L (136-145) Potassium Level 5.1mmol/L (3.5-5.1) Chloride Level 98mmol/L (98-107) Carbon Dioxide Level 27mmol/L (21-32) Anion Gap 16 (6-14) Blood Urea Nitrogen 77mg/dL (8-26) Creatinine 11.1mg/dL (0.7-1.3) Estimated GFR (Cockcroft-Gault) 4.9 Glucose Level 110mg/dL (70-99) Calcium Level 9.6mg/dL (8.5-10.1) Medications Current Medications Promethazine HCl/ Codeine (Phenergan With Codeine) 5 ml 1X ONCE PO Last administered on 06/19/16 00:23; Start 06/19/16 at 00:15; Stop 06/19/16 at 00:16 ; Status DC Acetaminophen (Tylenol) 650 mg PRN Q6HRS PRN PO MILD PAIN / TEMP; Start at 15:30 Ondansetron HCl (Zofran) 4 mg PRN Q6HRS PRN IV NAUSEA/VOMITING; Start 06/19/16 at 15:30 Guaifenesin (Mucinex) 600 mg BID PO Last administered on 06/19/16 16:06; Start 06/19/16 at 16:00 Azithromycin (Zithromax) 500 mg 1X ONCE PO Last administered on 06/19/16 16: 06; Start 06/19/16 at 15:45; Stop 06/19/16 at 15:46; Status DC Azithromycin (Zithromax) 250 mg DAILY PO ; Start 06/20/16 at 09:00 Albuterol/ Ipratropium (Duoneb) 3 ml RTQID NEB Last administered on 06/20/16 07 :57; Start 06/19/16 at 16:00 Guaifenesin 10 ml 10 ml PRN Q6HRS PRN PO COUGH Last administered on 06/19/16 21:48; Start 06/19/16 at 21:15 Sodium Chloride (Iv Sodium Chloride 0.9% 1000ml Bag) 1,000 ml @ 1,000 mls/hr Q1H PRN IV hypotension; Start 06/20/16 at 08:38; Stop 06/20/16 at 14:37 Diphenhydramine HCl (Benadryl) 25 mg 1X PRN PRN IV ITCHING; Start 06/20/16 at 08 :45; Stop 06/21/16 at 08:44 Diphenhydramine HCl 25 mg 25 mg 1X PRN PRN IV ITCHING; Start 06/20/16 at 08:45; Stop 06/21/16 at 08:44 Sodium Chloride (Iv Sodium Chloride 0.9% 1000ml Bag) 1,000 ml @ 400 mls/hr Q2H30M PRN IV PATENCY; Start 06/20/16 at 08:38; Stop 06/20/16 at 20:37 Info (PHARMACY MONITORING -- do not chart) 1 each PRN DAILY PRN MC SEE COMMENTS ; Start 06/20/16 at 08:45 Active Scripts Active Reported No Known Medications Prior To Admisstion (Info) Each 1 Each MC Vitals/I & O Vital Sign - Last 24 Hours 06/19/16 06/19/16 06/19/16 06/19/16 14:26 15:48 19:00 19:45 Temp 98.0 98.7 98.0 98.7 Pulse 97 119 Resp 19 20 B/P 106/55 102/68 Pulse Ox 93 96 93 O2 Delivery Nasal Cannula Room Air Room Air Room Air 06/19/16 06/19/16 06/20/16 06/20/16 20:00 23:00 02:55 07:00 Temp 99.3 99.1 98.1 99.3 99.1 98.1 Pulse 115 102 92 Resp 17 B/P 139/68 127/70 136/75 Pulse Ox 92 94 93 O2 Delivery Room Air Room Air Room Air Room Air 06/20/16 06/20/16 07:58 08:19 Pulse Ox 93 O2 Delivery Room Air Room Air Intake and Output 06/19/16 06/19/16 06/20/16 15:00 23:00 07:00 Intake Total 920 ml 720 ml Output Total 600 ml Balance 320 ml 720 ml MISHA CALLOWAY III DO Jun 20, 2016 13:12
[2016-06-20] MEDS: GUAIFENESIN ER 600 MG TABLET.ER PO SCH ×2 (14:05→21:16)
[2016-06-20] MEDS: AZITHROMYCIN 250 MG TABLET PO SCH (14:05)
[2016-06-20 14:44] VITALS: BP 95/68
[2016-06-20 19:21] VITALS: BP 102/75
[2016-06-20 23:05] VITALS: BP 133/70
[2016-06-21 02:50] VITALS: BP 118/78
[2016-06-21 07:00] VITALS: BP 126/73
[2016-06-21] MEDS: IPRATRPIUM/ALBUTEROL 0.5/2.5MG 3 ML NEBU. NEB SCH ×2 (08:12→11:41)
[2016-06-21] MEDS: GUAIFENESIN ER 600 MG TABLET.ER PO SCH (09:03)
[2016-06-21] MEDS: AZITHROMYCIN 250 MG TABLET PO SCH (09:03)
[2016-06-21 10:47] VITALS: BP 124/66
--- NOTE | 2016-06-21 12:38 | PDOC ---
PROGRESS NOTES Chief Complaint Chief Complaint Chest pain History of Present Illness History of Present Illness Patient was walking in hallway, alert, had no complains. No acute events overnight. After results of echocardiogram, cardiology discussed further workup with [facility] and possible cardiac cath, patient adamantly refused further workup as inpatient, patient approaching his baseline, probable discharge home today. Vitals Vitals Vital Signs Date Time Temp Pulse Resp B/P Pulse Ox O2 Delivery O2 Flow Rate FiO2 06/21/16 11:41 Room Air 06/21/16 10:47 97.9 93 20 124/66 93 97.9 Physical Exam General: Alert, Oriented X3, Cooperative, No acute distress Heart: Regular rate, Normal S1, Normal S2 Abdomen: Soft, No tenderness Extremities: No edema, Normal pulses, Other (aneurysm of left wrist) Skin: No significant lesion Review of Systems Review of Systems No new complains, afebrile, no SOB and CP, probable discharge home today. Assessment and Plan Assessmemt and Plan Assessment: Chest pain, resolved, severe aortic calcification on ECHO Chronic renal failure, on hemodialysis HTN Anemia, chronic Plan: Continue hemodialysis per renal Follow with cardiology as outpatient for recommended workup of aortic calcification, patient refusing inpatient [facility] and possible cardiac cath Appreciate subspecialty input and recommendations Possible discharge home today Prescribe Azithromycin to complete his 5 day course at home for bronchitis Problems Medical Problems: (1) Chest pain Status: Acute Problems: Comment Review of Relevant I have reviewed the following items melisa (where applicable) has been applied. Labs Laboratory Tests Test 06/20/16 03:48 White Blood Count 12.1x10^3/uL (4.0-11.0) Red Blood Count 3.90x10^6/uL (4.30-5.70) Hemoglobin 11.6g/dL (13.0-17.5) Hematocrit 35.7% (39.0-53.0) Mean Corpuscular Volume 91fL (79-100) Mean Corpuscular Hemoglobin 30pg (25-35) Mean Corpuscular Hemoglobin Concent 33g/dL (31-37) Red Cell Distribution Width 16.7% (11.5-14.5) Platelet Count 198x10^3/uL (140-400) Neutrophils (%) (Auto) 75% (31-73) Lymphocytes (%) (Auto) 9% (24-48) Monocytes (%) (Auto) 9% (0-9) Eosinophils (%) (Auto) 6% (0-3) Basophils (%) (Auto) 1% (0-3) Neutrophils # (Auto) 9.1x10^3uL (1.8-7.7) Lymphocytes # (Auto) 1.0x10^3/uL (1.0-4.8) Monocytes # (Auto) 1.1x10^3/uL (0.0-1.1) Eosinophils # (Auto) 0.8x10^3/uL (0.0-0.7) Basophils # (Auto) 0.1x10^3/uL (0.0-0.2) Sodium Level 141mmol/L (136-145) Potassium Level 5.1mmol/L (3.5-5.1) Chloride Level 98mmol/L (98-107) Carbon Dioxide Level 27mmol/L (21-32) Anion Gap 16 (6-14) Blood Urea Nitrogen 77mg/dL (8-26) Creatinine 11.1mg/dL (0.7-1.3) Estimated GFR (Cockcroft-Gault) 4.9 Glucose Level 110mg/dL (70-99) Calcium Level 9.6mg/dL (8.5-10.1) Medications Current Medications Promethazine HCl/ Codeine (Phenergan With Codeine) 5 ml 1X ONCE PO Last administered on 06/19/16 00:23; Start 06/19/16 at 00:15; Stop 06/19/16 at 00:16 ; Status DC Acetaminophen (Tylenol) 650 mg PRN Q6HRS PRN PO MILD PAIN / TEMP; Start at 15:30; Stop 06/21/16 at 12:23; Status DC Ondansetron HCl (Zofran) 4 mg PRN Q6HRS PRN IV NAUSEA/VOMITING; Start 06/19/16 at 15:30; Stop 06/21/16 at 12:23; Status DC Guaifenesin (Mucinex) 600 mg BID PO Last administered on 06/21/16 09:03; Start 06/19/16 at 16:00; Stop 06/21/16 at 12:23; Status DC Azithromycin (Zithromax) 500 mg 1X ONCE PO Last administered on 06/19/16 16: 06; Start 06/19/16 at 15:45; Stop 06/19/16 at 15:46; Status DC Azithromycin (Zithromax) 250 mg DAILY PO Last administered on 06/21/16 09:03; Start 06/20/16 at 09:00; Stop 06/21/16 at 12:23; Status DC Albuterol/ Ipratropium (Duoneb) 3 ml RTQID NEB Last administered on 06/21/16 11 :41; Start 06/19/16 at 16:00; Stop 06/21/16 at 12:23; Status DC Guaifenesin 10 ml 10 ml PRN Q6HRS PRN PO COUGH Last administered on 06/20/16 08 :15; Start 06/19/16 at 21:15; Stop 06/21/16 at 12:23; Status DC Sodium Chloride (Iv Sodium Chloride 0.9% 1000ml Bag) 1,000 ml @ 1,000 mls/hr Q1H PRN IV hypotension; Start 06/20/16 at 08:38; Stop 06/20/16 at 14:37; Status DC Diphenhydramine HCl (Benadryl) 25 mg 1X PRN PRN IV ITCHING; Start 06/20/16 at 08 :45; Stop 06/21/16 at 08:44; Status DC Diphenhydramine HCl 25 mg 25 mg 1X PRN PRN IV ITCHING; Start 06/20/16 at 08:45; Stop 06/21/16 at 08:44; Status DC Sodium Chloride (Iv Sodium Chloride 0.9% 1000ml Bag) 1,000 ml @ 400 mls/hr Q2H30M PRN IV PATENCY; Start 06/20/16 at 08:38; Stop 06/20/16 at 20:37; Status DC Info (PHARMACY MONITORING -- do not chart) 1 each PRN DAILY PRN MC SEE COMMENTS ; Start 06/20/16 at 08:45; Stop 06/21/16 at 12:23; Status DC Active Scripts Active Reported No Known Medications Prior To Admisstion (Info) Each 1 Each MC Vitals/I & O Vital Sign - Last 24 Hours 06/20/16 06/20/16 06/20/16 06/20/16 14:44 15:11 19:21 19:30 Temp 96.8 98.8 96.8 98.8 Pulse 115 106 Resp 20 16 B/P 95/68 102/75 Pulse Ox 96 92 92 O2 Delivery Room Air Room Air Room Air Room Air 06/20/16 06/20/16 06/21/16 06/21/16 20:02 23:05 02:50 07:00 Temp 99.7 98.1 97.7 99.7 98.1 97.7 Pulse 118 114 96 Resp 16 16 18 B/P 133/70 118/78 126/73 Pulse Ox 92 100 94 95 O2 Delivery Room Air Room Air Room Air Room Air 06/21/16 06/21/16 06/21/16 06/21/16 08:00 08:13 10:47 11:41 Temp 97.9 97.9 Pulse 93 Resp 20 B/P 124/66 Pulse Ox 95 93 O2 Delivery Room Air Room Air Room Air Room Air Intake and Output 06/20/16 06/20/16 06/21/16 15:00 23:00 07:00 Intake Total 400 ml 0 ml Output Total 0 ml Balance 400 ml 0 ml Nutrition Consultation Dietary Evaluation: Recommendations by RD: Dietary education by RD Comments: Provided education handouts on the renal diet, including nutrient lists with the phosphorus, potassium and protein contents of foods. Discussed with patient and family. Discussed the alternate menu-pt refusing lunch meal today Expected Outcomes/Goals: meet 75% estimated nutrition needs Malnutrition Findings: Reduced Fisher Clam Strength: N/A Reduced Fisher Clam Strength (Non-Sev: N/A Malnutrition related to morbid: No Weight Status: Appropriate Fluid Accumulation (N/A): N/A MISHA CALLOWAY III, DO Jun 21, 2016 12:37
--- NOTE | 2016-06-21 13:14 | PDOC ---
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 Chest Pain, atypical 2. Mild NT Pro BNP 3. Moderate-severe aortic stenosis 4. ESRD on HD 5. cough Had thorough discussion again today with patient regarding desire for further cardiac workup in [place] of abnormal echo findings and potential role of aortic stenosis in his ongoing cough. RN at bedside. Patient continue to refuse any further workup/treatment and is dress to go home. Patient encouraged to follow up with us on an outpatient basis. KYARA SOMMER APRN Jun 21, 2016 13:14
--- NOTE | 2016-06-28 17:59 | DS ---
DATE OF DISCHARGE: 06/21/2016 ADMISSION DIAGNOSIS: Chest pain. DISCHARGE DIAGNOSIS: Probable chronic angina (the patient refuses a cardiac catheterization). HOSPITAL COURSE: The patient is a pleasant 51-year-old male who is on dialysis. He has diabetes. He also has peripheral vascular disease. He presented with chest pain. We consulted cardiology. He refused cardiac cath, he is doing well though. We plan to discharge. DISPOSITION: Home. ACTIVITY: As tolerated. DIET: Low sodium. MEDICATIONS: Please see the MRAD. TOTAL TIME: 34 minutes. MISHA CALLOWAY DO DR: GAVIN/jamey JOB#: [id number] / [id number]
== END 2016-06-21 12:15 | disposition home or self-care (01) | DRG 391 ==
LOC: ER 20:36 → 2 SOUTH 23:16
PROVIDERS: ADMIT Internal Medicine; ATTEND Internal Medicine
PROC: 5A1D00Z (ICD-10-PCS; principal; 2016-06-20)
DX: K21.9 Gastro-esophageal reflux disease without esophagitis (principal); N18.6 End stage renal disease; I12.0 Hypertensive chronic kidney disease with stage 5 chronic kidney disease or end stage renal disease; D64.9 Anemia, unspecified; I35.0 Nonrheumatic aortic (valve) stenosis; J06.9 Acute upper respiratory infection, unspecified; J40 Bronchitis, not specified as acute or chronic; E21.3 Hyperparathyroidism, unspecified; K59.00 Constipation, unspecified; Z99.2 Dependence on renal dialysis
CPT/HCPCS: 36415; 71010; 80048; 80061; 83880; 84484; 85027; 93005; 93306; 94250; 94640; 94760; J7620; Q0144; 99285-25